=== PATIENT | female | born 1980 | race American Indian/Alaskan Native ===

== ENCOUNTER 2018-09-12 17:30 | Emergency (ER) | payer OTHER ==
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
[2018-09-12] MEDS ORDERED: TORADOL IM ONE (22:08)
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
[2018-09-12 22:33] VITALS: BP 141/78
== END 2018-09-12 22:37 | disposition home or self-care (01) ==
LOC: ED 17:30
DX: M25.561 Pain in right knee (principal); M25.562 Pain in left knee; E66.01 Morbid (severe) obesity due to excess calories; F17.200 Nicotine dependence, unspecified, uncomplicated; Z68.42 Body mass index [BMI] 45.0-49.9, adult; V89.2XXA Person injured in unspecified motor-vehicle accident, traffic, initial encounter; Y93.89 Activity, other specified; Y92.410 Unspecified street and highway as the place of occurrence of the external cause; Y99.8 Other external cause status
CPT/HCPCS: 73562; 96372; 99283; J1885

== ENCOUNTER 2020-10-24 08:19 | Emergency (ER) | payer OTHER ==
[2020-10-24 09:16] VITALS: BP 198/82
[2020-10-24 10:53] LABS: Bilirubin,Urine NEG (Negative); Blood,Urine NEG (Negative); Color,Urine Yellow (Yellow); Mucus,Urine FEW /HPF; RBC,Urine < 1.0 /HPF (0.0-6.0); Urobilinogen,Urine < 2.0 mg/dL (<2.0)
--- NOTE | 2020-10-24 13:39 | Emergency Department Report ---
ED Female HPI - General Chief complaint: Vaginal Bleeding Stated complaint: VAG BLEED/BACK PAIN Time Seen by Provider: 10/24/20 13:36 Source: patient Mode of arrival: Ambulatory Limitations: No Limitations - History of Present Illness Initial comments: 40-year-old female presents to the ER today with complaints of abnormal vaginal bleeding for 5 weeks. She states that when the bleeding started she thought it was related to her menstrual cycle but it has never stopped. Patient states that she has chronic low back pain which has been having for 5 months, but she states that in the past couple weeks she feels like the pain has gotten worse and she feels like somebody is stabbing her in her right lower back. She reports some abdominal discomfort, but she states that she thinks is related to her usual pain from endometriosis. She denies any lower extremity numbness, tingling, saddle anesthesia, bowel or bladder incontinence. Patient states that she went to urgent care on 10/18 for her symptoms and it was recommended that she go to the ER for CT scan to rule out kidney stones but she states that she could not make it that day because she has to take care of her kids and so came today instead. She does admit that she did not have a menstrual cycle in September or August prior to that, and her last normal period was July 2020. She is not currently on any control. She has not taken a home test since she has been bleeding. She is not currently on any blood thinners. She is G4, P3 Ab1. She states that she does have an appointment for [facility] scheduled but she states that they were not able to get her in for another 3 weeks. Complaint: vaginal bleeding -: week(s) (5) - Related Data Previous Rx's Medication Instructions Recorded Last Taken Type Naproxen [Naprosyn] 500 mg PO BID PRN #14 tablet 09/12/18 Unknown Rx Acetaminophen/Codeine [Tylenol 1 tab PO Q6H PRN #12 tab 10/24/20 Unknown Rx /Codeine # 3 tab] Ketorolac [Toradol] 10 mg PO Q6H PRN #20 tablet 10/24/20 Unknown Rx Allergies Allergy/AdvReac Type Severity Reaction Status Date / Time No Known Allergies Allergy Verified 09/12/18 17:34 ED Review of Systems ROS: Stated complaint: VAG BLEED/BACK PAIN Other details as noted in HPI Comment: All other systems reviewed and negative Constitutional: denies: chills, fever Eyes: denies: eye pain, eye discharge, vision change ENT: denies: ear pain, throat pain, dental pain, hearing loss, epistaxis, congestion Respiratory: denies: cough, shortness of breath, wheezing Cardiovascular: denies: chest pain, palpitations, dyspnea on exertion, orthopnea, edema, syncope, paroxysmal nocturnal dyspnea Endocrine: no symptoms reported Gastrointestinal: denies: abdominal pain, nausea, vomiting, diarrhea, constipation, hematemesis, hematochezia Genitourinary: abnormal menses Musculoskeletal: back pain Neurological: denies: headache, weakness, numbness, paresthesias, confusion, abnormal gait, vertigo Psychiatric: denies: anxiety, depression, auditory hallucinations, visual hallucinations, homicidal thoughts, suicidal thoughts Hematological/Lymphatic: denies: easy bleeding, easy bruising, swollen glands ED Past Medical Hx - Past Medical History Previous Medical History?: Yes Additional medical history: Endometriosis - Surgical History Past Surgical History?: Yes Additional Surgical History: C section - Social History Smoking Status: Current Every Day Smoker Substance Use Type: None - Medications Home Medications: Home Medications Medication Instructions Recorded Confirmed Last Taken Type Naproxen [Naprosyn] 500 mg PO BID PRN #14 tablet 09/12/18 Unknown Rx Acetaminophen/Codeine [Tylenol 1 tab PO Q6H PRN #12 tab 10/24/20 Unknown Rx /Codeine # 3 tab] Ketorolac [Toradol] 10 mg PO Q6H PRN #20 tablet 10/24/20 Unknown Rx ED Physical Exam - General Limitations: No Limitations General appearance: alert, in no apparent distress, obese - Head Head exam: Present: atraumatic, normocephalic, normal inspection - Eye Eye exam: Present: PERRL, EOMI Pupils: Present: normal accommodation - Neck Neck exam: Present: normal inspection, full ROM - Respiratory Respiratory exam: Absent: normal lung sounds bilaterally, respiratory distress, wheezes, rales, rhonchi, stridor - Cardiovascular Cardiovascular Exam: Present: regular rate, normal rhythm, normal heart sounds - GI/Abdominal GI/Abdominal exam: Present: soft. Absent: distended, tenderness, guarding, rebound - Back Exam Back exam: Present: normal inspection, CVA tenderness (L), paraspinal tenderness (right upper lumbar ) - Neurological Exam Neurological exam: Present: alert, oriented X3, CN II-XII intact, normal gait - Psychiatric Psychiatric exam: Present: normal affect, normal mood - Skin Skin exam: Present: intact ED Course Vital Signs 10/24/20 09:13 Temperature 97.7 F Pulse Rate 58 L Respiratory 20 Rate Blood Pressure 198/82 O2 Sat by Pulse 100 Oximetry ED Medical Decision Making - Lab Data Result diagrams: 10/24/20 14:40 10/24/20 14:40 - Radiology Data Radiology results: report reviewed Patient: KATERINA CLEMENT MR#: [id number] : 1980 Acct:[id number] Age/Sex: 40 / F ADM Date: 10/24/20 Loc: ED Attending Dr: Ordering Physician: VERONICA MERCHANT Date of Service: 10/24/20 Procedure(s): CT abdomen pelvis wo con Accession Number(s): [id number] cc: VERONICA MERCHANT CT ABDOMEN AND PELVIS WITHOUT CONTRAST INDICATION / CLINICAL INFORMATION: right flank/back pain. TECHNIQUE: Axial CT images were obtained through the abdomen and pelvis without IV contrast. All CT scans at this location are performed using CT dose reduction for ALARA by means of automated exposure control. COMPARISON: None available. FINDINGS: LOWER CHEST: No significant abnormality. LIVER: No significant abnormality. GALLBLADDER: No significant abnormality. BILE DUCTS: No significant abnormality. PANCREAS: No significant abnormality. SPLEEN: No significant abnormality. ADRENALS: No significant abnormality. RIGHT KIDNEY / URETER: No significant abnormality. LEFT KIDNEY / URETER: No significant abnormality. STOMACH / SMALL BOWEL: No significant abnormality. COLON: Diverticulosis without acute inflammation. APPENDIX: No significant abnormality. PERITONEUM: No free fluid. No free air. No fluid collection. LYMPH NODES: No significant adenopathy. AORTA / ARTERIES: Mild atherosclerotic calcification without acute abnormality. IVC / VEINS: No significant abnormality. URINARY BLADDER: No significant abnormality. REPRODUCTIVE ORGANS: No significant abnormality. ADDITIONAL FINDINGS: None. SKELETAL SYSTEM: No significant abnormality. IMPRESSION: 1. No significant abnormality. 2. Colonic diverticulosis. 3. 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 Signer Name: Mian José MD Signed: 10/24/2020 2:10 PM Workstation Name: [email or web address] Transcribed By: SB Dictated By: MIAN JOSÉ MD Electronically Authenticated By: MIAN JOSÉ MD Signed Date/Time: 10/24/20 1410 DD/ 1406 TD/TT: - Medical Decision Making All labs reviewed -all unremarkable. CT scan shows no acute abnormalities. I went to review lab work and discussed discharge instructions with patient, and also to have her vital signs repeated but when I called out for patient from the waiting room there was no answer at 1555. Patient was called a couple more times with still no answer. Patient apparently eloped without notifying myself or staff. Critical care attestation.: If time is entered above; I have spent that time in minutes in the direct care of this critically ill patient, excluding procedure time. ED Disposition Clinical Impression: Low back pain, Abnormal vaginal bleeding Disposition: 01 HOME / SELF CARE / HOMELESS Is pt being admited?: No Does the pt Need Aspirin: No Condition: Stable Instructions: Chronic Back Pain, [id number], Abnormal Uterine Bleeding, [id number] Additional Instructions: I recommend that you keep the appointment that was set up for you with the [facility] for further evaluation of her abnormal bleeding. As far as you will back pain, this could be related to degenerative disc disease or herniated disc and therefore I recommend that you follow-up with either your primary care doctor or the orthospine specialist for further evaluation including an outpatient MRI. Take the medication given to you here as prescribed. Return to the ER if your symptoms changes or worsens in any way. Prescriptions: Ketorolac [Toradol] 10 mg PO Q6H PRN #20 tablet PRN Reason: Pain Acetaminophen/Codeine [Tylenol /Codeine # 3 tab] 1 tab PO Q6H PRN #12 tab PRN Reason: Pain , Severe (7-10) Referrals: [facility] [Provider Group] - 3-5 Days [facility] [Provider Group] - 3-5 Days [facility] [Provider Group] - 3-5 Days Forms: Work/School Release Form(ED) Time of Disposition: 15:41
--- NOTE | 2020-10-24 14:14 | Cat Scan Report ---
CT ABDOMEN AND PELVIS WITHOUT CONTRAST INDICATION / CLINICAL INFORMATION: right flank/back pain. TECHNIQUE: Axial CT images were obtained through the abdomen and pelvis without IV contrast. All CT scans at this location are performed using CT dose reduction for ALARA by means of automated exposure control. COMPARISON: None available. FINDINGS: LOWER CHEST: No significant abnormality. LIVER: No significant abnormality. GALLBLADDER: No significant abnormality. BILE DUCTS: No significant abnormality. PANCREAS: No significant abnormality. SPLEEN: No significant abnormality. ADRENALS: No significant abnormality. RIGHT KIDNEY / URETER: No significant abnormality. LEFT KIDNEY / URETER: No significant abnormality. STOMACH / SMALL BOWEL: No significant abnormality. COLON: Diverticulosis without acute inflammation. APPENDIX: No significant abnormality. PERITONEUM: No free fluid. No free air. No fluid collection. LYMPH NODES: No significant adenopathy. AORTA / ARTERIES: Mild atherosclerotic calcification without acute abnormality. IVC / VEINS: No significant abnormality. URINARY BLADDER: No significant abnormality. REPRODUCTIVE ORGANS: No significant abnormality. ADDITIONAL FINDINGS: None. SKELETAL SYSTEM: No significant abnormality. IMPRESSION: 1. No significant abnormality. 2. Colonic diverticulosis. 3. 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 Signer Name: Mian Hussein MD Signed: 10/24/2020 2:10 PM Workstation Name: [id number]
[2020-10-24 15:13] LABS: Basophils % (Auto) 0.8 % (0.0-1.8); Eosinophils # (Auto) 0.2 K/mm3 (0.0-0.4); Eosinophils % (Auto) 3.5 % (0.0-4.3); Lymphocytes # (Auto) 1.7 K/mm3 (1.2-5.4); Lymphocytes % (Auto) 29.6 % (13.4-35.0); Mean Corpuscular HGB Conc 36 % (30-34); Mean Corpuscular Volume 87 fl (79-97); Monocytes # (Auto) 0.3 K/mm3 (0.0-0.8); Monocytes % (Auto) 5.9 % (0.0-7.3); Platelet Count 372 K/mm3 (140-440); Red Blood Count 4.33 M/mm3 (3.65-5.03); Red Cell Distribution Width 16.1 % (13.2-15.2)
[2020-10-24 15:16] LABS: Hematocrit 37.6 % (30.3-42.9); Hemoglobin 13.6 gm/dl (10.1-14.3)
[2020-10-24 15:35] LABS: Alanine Aminotransferase 21 units/L (7-56); Albumin 4.2 g/dL (3.9-5); Blood Urea Nitrogen 14 mg/dL (7-17); Calcium 9.6 mg/dL (8.4-10.2); Hemolysis Index 7
[2020-10-24 15:40] LABS: BUN/Creatinine Ratio 20
== END 2020-10-24 16:22 | disposition home or self-care (01) ==
LOC: ED 08:19
DX: N93.9 Abnormal uterine and vaginal bleeding, unspecified (principal); M54.5 Low back pain; Z98.890 Other specified postprocedural states; N80.9 Endometriosis, unspecified; F17.200 Nicotine dependence, unspecified, uncomplicated
CPT/HCPCS: 36415; 74176; 80053; 81001; 83690; 84703; 85025; 99284

== ENCOUNTER 2021-10-07 01:54 | Emergency (ER) | payer OTHER ==
[2021-10-07] MEDS ORDERED: cloNIDine 0.2 MG TAB PO ONE (02:25)
[2021-10-07 02:57] LABS: Amphetamine Screen,Urine PRESUMPTIVE POSITIVE; Benzodiazepines Screen,Urine PRESUMPTIVE NEGATIVE; Cannabinoid Screen,Urine PRESUMPTIVE POSITIVE; Cocaine Screen,Urine PRESUMPTIVE NEGATIVE; Methadone Screen,Urine PRESUMPTIVE NEGATIVE; Opiate Screen,Urine PRESUMPTIVE NEGATIVE
[2021-10-07 03:06] LABS: Mucus,Urine FEW /HPF
[2021-10-07 03:13] LABS: Bilirubin,Urine Negative (Negative); Blood,Urine Negative (Negative); Color,Urine Straw (Yellow)
[2021-10-07 03:14] LABS: Urobilinogen,Urine < 2.0 mg/dL (<2.0)
[2021-10-07 03:39] LABS: Basophils % (Auto) 0.3 % (0.0-1.8); Eosinophils # (Auto) 0.1 K/mm3 (0.0-0.4); Eosinophils % (Auto) 1.3 % (0.0-4.3); Lymphocytes # (Auto) 0.9 K/mm3 (1.2-5.4); Lymphocytes % (Auto) 17.4 % (13.4-35.0); Mean Corpuscular Volume 89 fl (79-97); Monocytes # (Auto) 0.3 K/mm3 (0.0-0.8); Monocytes % (Auto) 4.7 % (0.0-7.3); Platelet Count 270 K/mm3 (140-440)
[2021-10-07 03:44] LABS: Hemoglobin 12.7 gm/dl (10.1-14.3)
[2021-10-07 03:48] LABS: Mean Corpuscular HGB Conc 41 % (30-34)
[2021-10-07 03:57] LABS: Alanine Aminotransferase 18 units/L (7-56); Albumin 3.8 g/dL (3.9-5); BUN/Creatinine Ratio 21; Blood Urea Nitrogen 17 mg/dL (7-17); Calcium 9.5 mg/dL (8.4-10.2); Hemolysis Index 10
[2021-10-07] MEDS ORDERED: ACETAMINOPHEN 325 MG TAB PO ONE (05:43)
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
--- NOTE | 2021-10-07 07:54 | XRay Report ---
SOFT TISSUE NECK 2 VIEWS INDICATION: Sore throat. COMPARISON: No relevant prior imaging study available. FINDINGS: Epiglottis: No significant abnormality. Airway: No significant abnormality. Retropharyngeal soft tissues: No significant abnormality. Bones: No significant abnormality. Additional findings: None. IMPRESSION: 1. No significant abnormality. Signer Name: Mark Castellon MD Signed: 10/07/2021 7:49 AM Workstation Name: [id number]
[2021-10-07 19:59] VITALS: BP 169/91
== END 2021-10-07 10:20 | disposition home or self-care (01) ==
LOC: ED 01:54
DX: J02.9 Acute pharyngitis, unspecified (principal); F17.200 Nicotine dependence, unspecified, uncomplicated; Z79.899 Other long term (current) drug therapy
CPT/HCPCS: 36415; 70360; 80053; 80307; 81001; 85025; 87116; 87430; 99284